=== PATIENT | female | born 1945 | race Caucasian/White ===

== ENCOUNTER → 2016-10-21 | Outpatient (CLI) | payer OTHER | LOC: BMCIMAGING 09:37 | PROVIDERS: ATTEND Family Medicine | DX: S83.011A Lateral subluxation of right patella, initial encounter (principal); S83.012A Lateral subluxation of left patella, initial encounter; M17.0 Bilateral primary osteoarthritis of knee; M25.461 Effusion, right knee; M25.462 Effusion, left knee ==

== ENCOUNTER → 2017-01-06 | Outpatient (CLI) | payer OTHER | LOC: FIMAGING 12:42 | PROVIDERS: ATTEND Family Medicine | DX: H57.02 Anisocoria (principal); J34.89 Other specified disorders of nose and nasal sinuses; H74.8X2 Other specified disorders of left middle ear and mastoid ==